=== PATIENT | female | born 1970 | race Two or more races ===

== ENCOUNTER → 2019-02-20 | Outpatient (CLI) | payer OTHER | END | disposition home or self-care (01) | LOC: LAB 13:50 | PROVIDERS: ATTEND Preventive Medicine Preventive Medicine/Occupational Environmental Medicine | DX: Z02.1 Encounter for pre-employment examination (principal) | CPT/HCPCS: 36415; 86706; 86735; 86762; 86765 ==

== ENCOUNTER → 2020-03-07 | Outpatient (CLI) | payer OTHER | END | disposition home or self-care (01) | LOC: LAB 15:47 | PROVIDERS: ATTEND Physician Assistant | DX: Z20.828 Contact with and (suspected) exposure to other viral communicable diseases (principal) | CPT/HCPCS: 87635 ==

== ENCOUNTER 2023-01-08 12:45 | Emergency (ER) | payer OTHER ==
[~2023-01-08] VITALS: Ht 165.1 cm; Wt 91.0 kg
[2023-01-08 13:12] VITALS: BP 149/92
[2023-01-08] MEDS: KETOROLAC TROMETH 30 MG/ML 1ML VIAL IM ONE (14:23)
[2023-01-08] MEDS ORDERED: HYDR-4902 PO (15:41)
[2023-01-08] MEDS ORDERED: IBUP600T28 PO (15:41)
== END 2023-01-08 15:55 | disposition home or self-care (01) ==
LOC: ER 12:45 → EEVIPCON 12:45 → ER 15:55
DX: S42.401A Unspecified fracture of lower end of right humerus, initial encounter for closed fracture (principal); X50.9XXA Other and unspecified overexertion or strenuous movements or postures, initial encounter; Y93.89 Activity, other specified; Y92.89 Other specified places as the place of occurrence of the external cause; Y99.0 Civilian activity done for income or pay
CPT/HCPCS: 73080; 96372; 99283; J1885

== ENCOUNTER 2024-03-17 18:24 | Emergency (ER) | payer MEDICAID, OTHER ==
[~2024-03-17] VITALS: Ht 165.1 cm; Wt 87.2 kg
[~2024-03-17 18:24] MED LIST: HYDR-4902 PO; IBUP1TAB5 PO
[2024-03-17 18:33] VITALS: BP 150/84; PULSE 86; RESP 20; O2SAT 98
[2024-03-17] MEDS: KETOROLAC TROMETH 60MG/2ML VIAL IM ONE (20:00)
[2024-03-17] MEDS: CYCLOBENZAPRINE HCL 10 MG TAB PO ONE (20:01)
[2024-03-17] MEDS ORDERED: METH4PAK PO (20:59)
[2024-03-17] MEDS ORDERED: METH-1181 PO (20:59)
== END 2024-03-17 21:10 | disposition home or self-care (01) ==
LOC: ER 18:24
DX: S33.5XXA Sprain of ligaments of lumbar spine, initial encounter (principal); M54.16 Radiculopathy, lumbar region; I10 Essential (primary) hypertension; E78.5 Hyperlipidemia, unspecified; X58.XXXA Exposure to other specified factors, initial encounter; Y93.89 Activity, other specified; Y92.89 Other specified places as the place of occurrence of the external cause; Y99.8 Other external cause status
CPT/HCPCS: 96372; 99283; J1885